=== PATIENT | male | born 1955 | race American Indian/Alaskan Native ===

== ENCOUNTER 2017-09-05 04:28 | Emergency (ER) | payer MEDICARE, OTHER ==
[2017-09-05] MEDS ORDERED: NACL 0.9% IR SCH (06:00)
[2017-09-05] MEDS ORDERED: ZOFRAN IV ONE (06:35)
[2017-09-05] MEDS ORDERED: SUBLIMAZE IV ONE (06:35)
[2017-09-05] MEDS ORDERED: DILAUDID IV ONE (06:40)
[2017-09-05] MEDS ORDERED: NACL 0.9% 500 ML IR ONE (07:52)
--- NOTE | 2017-09-05 12:04 | Emergency Department Report ---
HPI - General Chief Complaint: Urogenital-Male Time Seen by Provider: 09/05/17 06:48 - HPI HPI: The patient is a 61-year-old male who presents for evaluation of abdominal pain. The patient reports midline lower abdominal pain and distention for the past one day. The patient has a history of prostate cancer and removal years ago, and recurrent episodes of gross hematuria since. The patient reports hematuria for the past couple of days, and Caraballo catheter placement at his urologists office yesterday. He states that he has experienced severe abdominal pain, 10/10 severity, pressure-like in quality, constant since onset last night, and associated with decreased urine output per Caraballo. The patient denies fever, chills, night sweats, diarrhea, blood in the stool, dark tarry stool, flank pain, genital discharge, inability to pass flatus. ED Past Medical Hx - Past Medical History Previous Medical History?: Yes Hx of Cancer: Yes (Prostate 2003) - Surgical History Past Surgical History?: Yes Additional Surgical History: prostate removal, R foot sx x4-hardware placed - Social History Smoking Status: Never Smoker Substance Use Type: None - Medications Home Medications: Home Medications Medication Instructions Recorded Confirmed Last Taken Type Sulfamethoxazole/Trimethoprim 1 each PO BID #20 tablet 08/11/17 Unknown Rx [Bactrim DS TAB] HYDROcodone/APAP 7.5-325 [[place] 1 each PO Q8HR PRN #10 tablet 09/05/17 Unknown Rx 7.5-325 mg TAB] Ondansetron [Zofran TAB] 4 mg PO Q8HR PRN #15 tablet 09/05/17 Unknown Rx ED Review of Systems ROS: Stated complaint: BLEEDING FROM GROIN AREA Other details as noted in HPI Constitutional: denies: fever ENT: denies: throat or neck pain Respiratory: denies: cough, shortness of breath Cardiovascular: denies: chest pain Endocrine: denies unexplained weight loss or gain Gastrointestinal: reports abdominal pain, nausea Genitourinary: denies: dysuria Musculoskeletal: denies: leg swelling Skin: denies: rash Neurological: denies: headache Hematological/Lymphatic: denies: easy bleeding or easy bruising Psych: denies sadness or hopelessness Physical Exam - Physical Exam Vital Signs: Vital Signs 09/05/17 09/05/17 09/05/17 04:49 06:02 06:05 Temperature 97.3 F L Pulse Rate 78 88 95 H Respiratory 18 21 Rate Blood Pressure 127/87 148/99 Blood Pressure [Left] O2 Sat by Pulse 98 100 Oximetry 09/05/17 09/05/17 09/05/17 06:11 06:15 06:20 Temperature Pulse Rate 88 74 Respiratory 25 H 18 13 Rate Blood Pressure 148/99 144/96 148/99 Blood Pressure [Left] O2 Sat by Pulse 99 99 99 Oximetry 09/05/17 09/05/17 09/05/17 06:25 06:30 06:35 Temperature Pulse Rate 74 78 94 H Respiratory 12 14 18 Rate Blood Pressure 144/96 146/96 146/96 Blood Pressure [Left] O2 Sat by Pulse 99 97 100 Oximetry 09/05/17 09/05/17 09/05/17 06:41 06:45 06:51 Temperature Pulse Rate 81 82 76 Respiratory 14 22 21 Rate Blood Pressure 144/96 148/96 148/96 Blood Pressure [Left] O2 Sat by Pulse 98 92 99 Oximetry 09/05/17 09/05/17 09/05/17 06:54 06:55 08:30 Temperature 98.7 F Pulse Rate 77 80 Respiratory 16 16 19 Rate Blood Pressure 127/83 Blood Pressure 148/99 [Left] O2 Sat by Pulse 100 100 100 Oximetry 09/05/17 09/05/17 09/05/17 08:45 09:01 09:15 Temperature Pulse Rate 80 83 80 Respiratory 21 19 18 Rate Blood Pressure 127/82 107/71 106/65 Blood Pressure [Left] O2 Sat by Pulse 100 100 100 Oximetry 09/05/17 09/05/17 09/05/17 09:31 09:45 10:00 Temperature Pulse Rate 99 H 80 76 Respiratory 24 18 20 Rate Blood Pressure 134/86 119/82 122/85 Blood Pressure [Left] O2 Sat by Pulse 100 96 100 Oximetry 09/05/17 09/05/17 09/05/17 10:15 10:30 10:45 Temperature Pulse Rate 79 76 74 Respiratory 22 12 19 Rate Blood Pressure 113/85 114/69 125/54 Blood Pressure [Left] O2 Sat by Pulse 100 95 100 Oximetry Physical Exam: General: well-nourished, well-developed, no acute distress Head: Normocephalic, atraumatic Eyes: normal sclera ENT: Mucous membranes are pink and moist Neck: trachea midline, neck supple, No neck stiffness, no cervical adenopathy Respiratory: Breath sounds equal bilaterally, no wheezing, rales, or rhonchi Cardio: S1 and S2 present, no murmurs, rubs, gallops, capillary refill is brisk Abdomen: Normoactive bowel sounds, soft abdomen, she will be returned to palpation present, mild distention present to the lower abdomen, no rigidity, no guarding or rebound tenderness Musc: No pitting edema Skin: No rash Neuro: no facial drooping, normal speech Psych: Normal affect ED Course Vital Signs 09/05/17 09/05/17 09/05/17 04:49 06:02 06:05 Temperature 97.3 F L Pulse Rate 78 88 95 H Respiratory 18 21 Rate Blood Pressure 127/87 148/99 Blood Pressure [Left] O2 Sat by Pulse 98 100 Oximetry 09/05/17 09/05/17 09/05/17 06:11 06:15 06:20 Temperature Pulse Rate 88 74 Respiratory 25 H 18 13 Rate Blood Pressure 148/99 144/96 148/99 Blood Pressure [Left] O2 Sat by Pulse 99 99 99 Oximetry 09/05/17 09/05/17 09/05/17 06:25 06:30 06:35 Temperature Pulse Rate 74 78 94 H Respiratory 12 14 18 Rate Blood Pressure 144/96 146/96 146/96 Blood Pressure [Left] O2 Sat by Pulse 99 97 100 Oximetry 09/05/17 09/05/17 09/05/17 06:41 06:45 06:51 Temperature Pulse Rate 81 82 76 Respiratory 14 22 21 Rate Blood Pressure 144/96 148/96 148/96 Blood Pressure [Left] O2 Sat by Pulse 98 92 99 Oximetry 09/05/17 09/05/17 09/05/17 06:54 06:55 08:30 Temperature 98.7 F Pulse Rate 77 80 Respiratory 16 16 19 Rate Blood Pressure 127/83 Blood Pressure 148/99 [Left] O2 Sat by Pulse 100 100 100 Oximetry 09/05/17 09/05/17 09/05/17 08:45 09:01 09:15 Temperature Pulse Rate 80 83 80 Respiratory 21 19 18 Rate Blood Pressure 127/82 107/71 106/65 Blood Pressure [Left] O2 Sat by Pulse 100 100 100 Oximetry 09/05/17 09/05/17 09/05/17 09:31 09:45 10:00 Temperature Pulse Rate 99 H 80 76 Respiratory 24 18 20 Rate Blood Pressure 134/86 119/82 122/85 Blood Pressure [Left] O2 Sat by Pulse 100 96 100 Oximetry 09/05/17 09/05/17 09/05/17 10:15 10:30 10:45 Temperature Pulse Rate 79 76 74 Respiratory 22 12 19 Rate Blood Pressure 113/85 114/69 125/54 Blood Pressure [Left] O2 Sat by Pulse 100 95 100 Oximetry ED Medical Decision Making - Medical Decision Making The patient was seen and examined by myself. The patient is placed on a school bus monitor and continuous pulse ox. On initial evaluation, the patient was found to be in no distress. Evaluation orders were placed. The patient was given IV pain medicine. A 3-way catheter is placed and the patient's bladder is irrigated with 3 L normal saline fluid bolus. The patient's bladder appropriately drains and the patient's pain resolves. Lab results are grossly unremarkable. CT scan abdomen and pelvis is unremarkable.The patient was reevaluated and reported that their symptoms were markedly improved. The patient is stable for discharge with outpatient follow-up. The patient is given follow-up and return instructions. The patient expressed understanding and agreed with the plan. The patient is discharged in stable condition. Critical care attestation.: If time is entered above; I have spent that time in minutes in the direct care of this critically ill patient, excluding procedure time. ED Disposition Clinical Impression: Abdominal pain, acute, periumbilical, Gross hematuria Obstructed Caraballo catheter Qualifiers: Encounter type: initial encounter Qualified Code(s): T83.091A - Other mechanical complication of indwelling urethral catheter, initial encounter Disposition: - TO HOME OR SELFCARE Is pt being admited?: No Does the pt Need Aspirin: No Condition: Stable Instructions: Caraballo Catheter Placement and Care (ED), Acute Hematuria (ED), Acute Abdominal Pain (ED) Prescriptions: HYDROcodone/APAP 7.5-325 [Webb 7.5-325 mg TAB] 1 each PO Q8HR PRN #10 tablet PRN Reason: Pain Ondansetron [Zofran TAB] 4 mg PO Q8HR PRN #15 tablet PRN Reason: Nausea Referrals: PRIMARY CARE, [Primary Care Provider] - 3-5 Days SUZANNE NELSON MD [Staff Physician] - 3-5 Days Time of Disposition: 11:59
[2017-09-05 12:25] VITALS: BP 105/71
== END 2017-09-05 12:30 | disposition home or self-care (01) ==
LOC: ED 04:28
DX: T83.091A Other mechanical complication of indwelling urethral catheter, initial encounter (principal); R31.0 Gross hematuria; R10.9 Unspecified abdominal pain
CPT/HCPCS: 51701; 96374; 96375; 99283; A4217; J1170; J2405; J3010

== ENCOUNTER 2017-09-09 13:02 | Inpatient (IN) | payer MEDICARE, OTHER ==
[2017-09-09] MEDS ORDERED: MILK OF MAGNESIA PO PRN (14:10)
[2017-09-09] MEDS ORDERED: DULCOLAX PR PRN (14:10)
[2017-09-09] MEDS ORDERED: TYLENOL PO PRN (14:10)
[2017-09-09] MEDS ORDERED: ZOFRAN IV PRN (14:10)
[2017-09-09] MEDS ORDERED: PROVENTIL IH PRN (14:10)
--- NOTE | 2017-09-09 14:10 | History and Physical Report ---
History of Present Illness Date of admission: 09/09/17 13:56 Chief complaint: I need surgery History of present illness: 61 YO Male with CaP, admitted directly to hospitalist service at the request of Dr. Barajas. Pt was seen and evaluated by his Urologist for Hematuria, Bladder Mass suspicious for malignancy, and Urinary retention. Pt seen and evaluated upon arrival. Pt denies fever, chills, CP, Palpitations, NVD, recent ill contacts. Pt to be taken to OR in AM as per urology service. Pt treated with empiric antibiotic therapy, and routine labs, ordered as per urology request. Past History Past Medical History: cancer Past Surgical History: Other (Prostate surgery, Right foot surgery) Social history: Family history: hypertension Medications and Allergies Allergies Allergy/AdvReac Type Severity Reaction Status Date / Time No Known Allergies Allergy Unverified 08/06/17 11:58 Home Medications Medication Instructions Recorded Confirmed Last Taken Type Sulfamethoxazole/Trimethoprim 1 each PO BID #20 tablet 08/11/17 09/09/17 Unknown Rx [Bactrim DS TAB] HYDROcodone/APAP 7.5-325 [[place] 1 each PO Q8HR PRN #10 tablet 09/05/17 09/09/17 Unknown Rx 7.5-325 mg TAB] Ondansetron [Zofran TAB] 4 mg PO Q8HR PRN #15 tablet 09/05/17 09/09/17 Unknown Rx Review of Systems Constitutional: no weight loss, no weight gain, no fever, no chills Ears, nose, mouth and throat: no ear pain, no ear discharge, no tinnitis, no decreased hearing, no nose pain, no nasal congestion, no nasal discharge Cardiovascular: no chest pain, no orthopnea, no palpitations, no rapid/ irregular heart beat, no edema, no syncope, no lightheadedness Respiratory: no cough, no cough with sputum, no excessive sputum, no hemoptysis Gastrointestinal: no abdominal pain, no nausea, no vomiting, no diarrhea, no constipation Genitourinary Male: dysuria, hematuria, urinary retention, no flank pain, no discharge, no urinary frequency, no urinary hesitancy Rectal: no pain, no incontinence, no bleeding Musculoskeletal: no neck stiffness, no neck pain, no shooting arm pain, no arm numbness/tingling, no low back pain, no shooting leg pain Integumentary: no rash, no pruritis, no redness, no sores, no wounds, no jaundice Neurological: no head injury, no transient paralysis, no paralysis, no weakness , no parathesias, no numbness, no tingling Psychiatric: no anxiety, no memory loss, no change in sleep habits, no sleep disturbances, no hypersomnia Endocrine: no cold intolerance, no heat intolerance, no polyphagia, no excessive thirst, no polydipsia, no polyuria, no nocturia Hematologic/Lymphatic: no easy bruising, no easy bleeding Allergic/Immunologic: no urticaria, no allergic rhinitis, no wheezing Exam - Constitutional General appearance: Present: no acute distress, well-nourished - EENT Eyes: Present: PERRL ENT: hearing intact, clear oral mucosa - Neck Neck: Present: supple, normal ROM - Respiratory Respiratory effort: normal Respiratory: bilateral: CTA - Cardiovascular Heart Sounds: Present: S1 & S2. Absent: rub, click - Extremities Extremities: pulses symmetrical, No edema Peripheral Pulses: within normal limits - Abdominal General gastrointestinal: Present: soft, non-tender, non-distended, normal bowel sounds Male genitourinary: Present: normal - Integumentary Integumentary: Present: clear, warm, dry - Musculoskeletal Musculoskeletal: gait normal, strength equal bilaterally - Psychiatric Psychiatric: appropriate mood/affect, intact judgment & insight - Neurologic Neurologic: CNII-XII intact, moves all extremities Results - Labs CBC & Chem 7: 09/09/17 16:33 09/09/17 16:33 Assessment and Plan - Patient Problems (1) Abdominal pain, acute, periumbilical Current Visit: No Status: Acute Plan to address problem: Pain control, suspect secondary to bladder mass. Urology consulted, No further imaging at this time, Pt pending surgical intervention in AM. (2) Urinary retention Current Visit: Yes Status: Acute Plan to address problem: Caraballo catheter placement, CBI, (3) Bladder mass Current Visit: Yes Status: Acute Plan to address problem: Urology consulted, Pt to go to OR in am for surgical evaluation/treatment (4) DVT prophylaxis Current Visit: Yes Status: Acute
[2017-09-09 16:56] LABS: Basophils % (Auto) 0.4 % (0.0-1.8); Eosinophils % (Auto) 0.8 % (0.0-4.3); Hematocrit 29.7 % (35.5-45.6); Mean Corpuscular HGB Conc 34 % (32-34); Mean Corpuscular Hemoglobin 31 pg (28-32); Mean Corpuscular Volume 91 fl (84-94); Platelet Count 148 K/mm3 (140-440); Red Blood Count 3.28 M/mm3 (3.65-5.03); Red Cell Distribution Width 14.6 % (13.2-15.2); White Blood Count 7.1 K/mm3 (4.5-11.0)
[2017-09-09 17:06] LABS: INR 1.05 (0.87-1.13)
[2017-09-09 17:20] LABS: Alanine Aminotransferase 27 units/L (7-56); Albumin 4.3 g/dL (3.9-5); Albumin/Globulin Ratio 1.4 %; Alkaline Phosphatase 47 units/L (35-129); Anion Gap 22 mmol/L; BUN/Creatinine Ratio 12; Blood Urea Nitrogen 11 mg/dL (9-20); Calcium 8.8 mg/dL (8.4-10.2); Carbon Dioxide 24 mmol/L (22-30); Chloride 101.7 mmol/L (98-107); Glucose 112 mg/dL (75-100); Potassium 3.9 mmol/L (3.6-5.0); Sodium 144 mmol/L (137-145); Total Protein 7.3 g/dL (6.3-8.2)
[2017-09-09] MEDS: NACL 0.45% 1000 ML 1,000 ML IV SCH (18:24)
[2017-09-09] MEDS: cefTRIAXone 1 GM in NACL 0.9% 20 ML IV SCH (18:25)
[2017-09-09] MEDS ORDERED: NACL 0.9% 1,000 ML IR ONE (20:06)
[2017-09-09] MEDS ORDERED: NACL 0.9% IR STA (20:22)
[2017-09-09] MEDS ORDERED: NACL 0.9% IR PRN (20:29)
[2017-09-09] MEDS: PEPCID IV SCH (22:48)
[2017-09-09] MEDS: AMBIEN PO PRN (22:48)
[2017-09-09] MEDS: NACL 0.9% IR SCH (23:08)
[2017-09-10] MEDS: NACL 0.9% IR SCH ×4 (01:35→22:40)
[2017-09-10] MEDS ORDERED: DIPRIVAN 10 MG/ML IV ONE (07:13)
[2017-09-10] MEDS ORDERED: DILAUDID ONE ×4 (07:14→11:19)
[2017-09-10] MEDS ORDERED: XYLOCAINE MPF 2% ONE (07:14)
[2017-09-10] MEDS ORDERED: ZOFRAN ONE (07:15)
[2017-09-10] MEDS ORDERED: DECADRON ONE (07:15)
[2017-09-10] MEDS ORDERED: NACL 0.9% 1000 ML 1,000 ML ONE ×3 (07:39→11:24)
[2017-09-10] MEDS ORDERED: ANCEF ONE ×2 (07:58)
[2017-09-10] MEDS ORDERED: LASIX ONE (08:20)
[2017-09-10] MEDS ORDERED: WATER FOR IRRIG STERILE IR ONE ×3 (08:30)
[2017-09-10] MEDS ORDERED: XYLOCAINE 2% UROJET ONE (08:37)
[2017-09-10] MEDS ORDERED: XYLOCAINE 2% UROJET UR ONE (08:58)
[2017-09-10] MEDS: DILAUDID IV PRN ×4 (09:27→10:20)
--- NOTE | 2017-09-10 09:27 | Anesthesia Day of Surgery ---
Anesthesia Day of Surgery - Day of Surgery Patient Examined: Yes Patient H&P Reviewed: Yes Patient is NPO: Yes
--- NOTE | 2017-09-10 09:27 | Post Anesthesia Evaluation ---
- Post Anesthesia Evaluation Patient Participated: Yes Airway Patent: Yes Stable Respiratory Function: Yes Nausea/Vomiting: No Temp > 96.8F: Yes Pain Manageable: Yes Adequeate Hydration: Yes Anesthesia Complications: No Block Receding Appropriately: Not Applicable Patient on Ventilator: No
--- NOTE | 2017-09-10 09:27 | Anesthesia Consultation ---
Anesthesia Consult and Med Hx Date of service: 09/10/17 - Airway Anesthetic Teeth Evaluation: Good ROM Head & Neck: Adequate Mental/Hyoid Distance: Adequate Mallampati Class: Class II Intubation Access Assessment: Probably Good - Pulmonary Exam CTA: Yes - Cardiac Exam Cardiac Exam: RRR - Pre-Operative Health Status ASA Pre-Surgery Classification: ASA2 Proposed Anesthetic Plan: General - Pulmonary Hx Asthma: No - Cardiovascular System Hx Hypertension: No - Central Nervous System Hx Seizures: No CVA: No Hx Psychiatric Problems: No - Endocrine Hx Liver Disease: No - Other Systems Hx Alcohol Use: No Hx Substance Use: No Hx Cancer: Yes (prostate) Hx Obesity: Yes
--- NOTE | 2017-09-10 12:28 | Ultrasound Report ---
FINAL REPORT EXAM: US PELVIC LIMITED HISTORY: CHECK GARCIA PLACEMENT; IRRIGATION NOT DRAINING TECHNIQUE: Ultrasound evaluation of the urinary bladder, patient in recovery from cystogram PRIORS: None. FINDINGS: Urinary bladder cannot be assessed since there is no evidence of fluid. It is likely empty. No pelvic free fluid. Garcia catheter or balloon not definitively manifest sonographically. IMPRESSION: Likely empty urinary bladder since fluid is not visualized. Garcia catheter or balloon not definitively manifest with ultrasound
--- NOTE | 2017-09-10 12:31 | Fluoroscopy Report ---
FLUOROSCOPY RETROGRADE UROGRAPHY FLUOROSCOPY CYSTOGRAM, ONE VIEW History: Gross hematuria. Findings: Fluoroscopy was provided by radiology during retrograde urography and cystogram by urology. 10 fluoroscopic images were captured. Please correlate with the procedural report by Dr. Barajas.
[2017-09-10] MEDS: MORPHINE IV PRN ×2 (13:28→17:53)
--- NOTE | 2017-09-10 13:31 | Progress Note ---
Assessment and Plan Assessment and plan: Hematuria, Urinary retention. He was taken to OR and had cystoscopy, RPG and bladder biopsy done by Dr Barajas. Management as per Urologist Was on page drip as per urologist. History of Prostate cancer. had bladder biopsy done today DVT prophylaxis with SCDs only because of gross hematuria. History Interval history: Patient presented with hematuria, urinary retention, had surgical procedure today Mild pain lower abdomen Hospitalist Physical - Constitutional Vitals: Temp Pulse Resp BP Pulse Ox 97.9 F 85 18 125/90 94 09/10/17 11:38 09/10/17 11:38 09/10/17 11:38 09/10/17 11:38 09/10/17 11:38 General appearance: Present: no acute distress, obese - EENT Eyes: Present: PERRL ENT: clear oral mucosa - Neck Neck: Present: supple - Respiratory Respiratory effort: normal Respiratory: bilateral: CTA, negative: diminished, rales, rhonchi, wheezing - Cardiovascular Rhythm: regular Heart Sounds: Present: S1 & S2 (S1 and S2 reg, no murmurs) - Extremities Extremities: no ischemia, No edema - Abdominal General gastrointestinal: soft, non-tender, non-distended, normal bowel sounds - Integumentary Integumentary: Present: clear, warm, dry - Psychiatric Psychiatric: appropriate mood/affect, intact judgment & insight - Neurologic Neurologic: moves all extremities, other (AAO x 3) Results - Labs CBC & Chem 7: 09/12/17 04:56 09/12/17 04:56 Labs: Laboratory Last Values WBC 7.1 K/mm3 (4.5-11.0) 09/09/17 16:33 RBC 3.28 M/mm3 (3.65-5.03) L 09/09/17 16:33 Hgb 10.0 gm/dl (11.8-15.2) L 09/09/17 16:33 Hct 29.7 % (35.5-45.6) L 09/09/17 16:33 MCV 91 fl (84-94) 09/09/17 16:33 MCH 31 pg (28-32) 09/09/17 16:33 MCHC 34 % (32-34) 09/09/17 16:33 RDW 14.6 % (13.2-15.2) 09/09/17 16:33 Plt Count 148 K/mm3 (140-440) 09/09/17 16:33 Lymph % (Auto) 14.1 % (13.4-35.0) 09/09/17 16:33 [place] % (Auto) 5.8 % (0.0-7.3) 09/09/17 16:33 Eos % (Auto) 0.8 % (0.0-4.3) 09/09/17 16:33 Baso % (Auto) 0.4 % (0.0-1.8) 09/09/17 16:33 Lymph # 1.0 K/mm3 (1.2-5.4) L 09/09/17 16:33 [place] # 0.4 K/mm3 (0.0-0.8) 09/09/17 16:33 Eos # 0.1 K/mm3 (0.0-0.4) 09/09/17 16:33 Baso # 0.0 K/mm3 (0.0-0.1) 09/09/17 16:33 Seg Neutrophils % 78.9 % (40.0-70.0) H 09/09/17 16:33 Seg Neutrophils # 5.6 K/mm3 (1.8-7.7) 09/09/17 16:33 PT 14.2 Sec. (12.2-14.9) 09/09/17 16:33 INR 1.05 (0.87-1.13) 09/09/17 16:33 Sodium 144 mmol/L (137-145) 09/09/17 16:33 Potassium 3.9 mmol/L (3.6-5.0) 09/09/17 16:33 Chloride 101.7 mmol/L (98-107) 09/09/17 16:33 Carbon Dioxide 24 mmol/L (22-30) 09/09/17 16:33 Anion Gap 22 mmol/L 09/09/17 16:33 BUN 11 mg/dL (9-20) 09/09/17 16:33 Creatinine 0.9 mg/dL (0.8-1.5) 09/09/17 16:33 Estimated GFR > 60 ml/min 09/09/17 16:33 BUN/Creatinine Ratio 12 % 09/09/17 16:33 Glucose 112 mg/dL (75-100) H 09/09/17 16:33 Calcium 8.8 mg/dL (8.4-10.2) 09/09/17 16:33 Total Bilirubin 0.40 mg/dL (0.1-1.2) 09/09/17 16:33 AST 18 units/L (5-40) 09/09/17 16:33 ALT 27 units/L (7-56) 09/09/17 16:33 Alkaline Phosphatase 47 units/L (35-129) 09/09/17 16:33 Total Protein 7.3 g/dL (6.3-8.2) 09/09/17 16:33 Albumin 4.3 g/dL (3.9-5) 09/09/17 16:33 Albumin/Globulin Ratio 1.4 % 09/09/17 16:33
[2017-09-10] MEDS ORDERED: DITROPAN XL PO ONE (17:00)
[2017-09-10] MEDS: cefTRIAXone 1 GM in NACL 0.9% 20 ML IV SCH (18:02)
[2017-09-10] MEDS: AMBIEN PO PRN (22:40)
[2017-09-10] MEDS: PEPCID IV SCH (22:40)
[2017-09-11] MEDS: MORPHINE IV PRN ×4 (05:20→21:31)
[2017-09-11] MEDS: NACL 0.9% IR SCH ×3 (08:42→21:00)
[2017-09-11] MEDS: PEPCID IV SCH ×2 (09:48→21:32)
--- NOTE | 2017-09-11 11:29 | Post Operative Note ---
Pre-op diagnosis: Gross hematuria, prostate ca Post-op diagnosis: same Findings: some susp areass near bn, raised, ?cic/early pap bleeding around BN and prox is just show it is not Procedure: CYSTO rpg, bladder bx fulg lesions; Anesthesia: YUDITHA Surgeon: ANTHONY LOPEZ Estimated blood loss: minimal Pathology: list (BN rt, left; 6; urethra tissuebx) Specimen disposition: to lab Condition: stable Disposition: PACU
--- NOTE | 2017-09-11 12:02 | Event Note ---
Date: 09/11/17 sig dec abd pain urine clearing page drip held if clear will remove seo today and if voids can go home labs pending cbc/bmp
--- NOTE | 2017-09-11 12:03 | Event Note ---
Date: 09/10/17 Post op no sig abd pain catheter urine clear significantly improved patient does have his seq compression deviceon it and working, placed preoperatively discussed plan will patie
[2017-09-11 12:24] LABS: Basophils % (Auto) 0.4 % (0.0-1.8); Eosinophils % (Auto) 1.2 % (0.0-4.3); Hemoglobin 9.2 gm/dl (11.8-15.2); Mean Corpuscular HGB Conc 34 % (32-34); Mean Corpuscular Hemoglobin 31 pg (28-32); Mean Corpuscular Volume 91 fl (84-94); Platelet Count 144 K/mm3 (140-440); Red Blood Count 2.97 M/mm3 (3.65-5.03); Red Cell Distribution Width 14.2 % (13.2-15.2); White Blood Count 5.5 K/mm3 (4.5-11.0)
[2017-09-11 12:36] LABS: Anion Gap 17 mmol/L; BUN/Creatinine Ratio 14; Blood Urea Nitrogen 13 mg/dL (9-20); Calcium 8.3 mg/dL (8.4-10.2); Carbon Dioxide 25 mmol/L (22-30); Chloride 103.5 mmol/L (98-107); Glucose 115 mg/dL (75-100); Potassium 3.4 mmol/L (3.6-5.0); Sodium 142 mmol/L (137-145)
[2017-09-11] MEDS: FLOMAX PO SCH (12:42)
--- NOTE | 2017-09-11 16:18 | Progress Note ---
Assessment and Plan /Hematuria, Urinary retention. He was taken to OR and had cystoscopy done Management as per Urologist Was on page drip as per urologist. page drip held today if urine clear plan to remove seo today and if voids can go home momitor H/H /History of Prostate cancer. - need outpt f/u DVT prophylaxis with SCDs only. Brief history: 61 YO Male with CaP, admitted directly to hospitalist service at the request of Dr. Barajas. Pt was seen and evaluated by his Urologist for Hematuria, Bladder Mass suspicious for malignancy, and Urinary retention Hospitalist Physical General appearance: Present: no acute distress, obese - EENT Eyes: Present: PERRL ENT: clear oral mucosa - Neck Neck: Present: supple - Respiratory Respiratory effort: normal Respiratory: bilateral: CTA, negative: diminished, rales, rhonchi, wheezing - Cardiovascular Rhythm: regular Heart Sounds: Present: S1 & S2 (S1 and S2 reg, no murmurs) - Extremities Extremities: no ischemia, No edema - Abdominal General gastrointestinal: soft, non-tender, non-distended, normal bowel sounds - Integumentary Integumentary: Present: clear, warm, dry - Psychiatric Psychiatric: appropriate mood/affect, intact judgment & insight - Neurologic Neurologic: moves all extremities, other (AAO x 3) Subjective Date of service: 09/11/17 Interval history: Patient seen and examined. Medical records and medication list reviewed. No acute event overnight noted by the RN. Patient denies any chest pain or difficulty breathing. Patient is tolerating diet. Discussed plan of care at bedside with patient. Objective - Constitutional Vitals: Vital Signs - 12hr 09/11/17 09/11/17 09/11/17 07:32 07:57 10:00 Temperature 98.7 F Pulse Rate 86 77 Respiratory 20 18 Rate Blood Pressure 115/74 Blood Pressure 115/74 [Right] O2 Sat by Pulse 95 99 Oximetry - Labs CBC & Chem 7: 09/12/17 04:56 09/12/17 04:56 Labs: Abnormal lab results 09/11/17 09/11/17 Range/Units 11:33 11:33 RBC 2.97 L (3.65-5.03) M/mm3 Hgb 9.2 L (11.8-15.2) gm/dl Hct 27.0 L (35.5-45.6) % Lymph # 1.0 L (1.2-5.4) K/mm3 Seg Neutrophils % 74.1 H (40.0-70.0) % Potassium 3.4 L (3.6-5.0) mmol/L Glucose 115 H (75-100) mg/dL Calcium 8.3 L (8.4-10.2) mg/dL
[2017-09-11] MEDS ORDERED: K-DUR PO ONE (16:20)
[2017-09-11 16:33] LABS: INR 1.09 (0.87-1.13)
[2017-09-11 16:34] LABS: Partial Thromboplastin Time 32.5 Sec. (24.2-36.6)
[2017-09-11] MEDS: cefTRIAXone 1 GM in NACL 0.9% 20 ML IV SCH (16:47)
[2017-09-11] MEDS: NACL 0.45% 1000 ML 1,000 ML IV SCH (22:49)
[2017-09-11] MEDS: ALUM IR SCH (23:03)
[2017-09-11] MEDS: NS IRRIGATION IR SCH (23:03)
[2017-09-11] MEDS: AMBIEN PO PRN (23:03)
[2017-09-12] MEDS: NACL 0.9% IR SCH (02:30)
[2017-09-12] MEDS: PEPCID IV SCH (03:06)
[2017-09-12 06:44] LABS: Basophils % (Auto) 0.5 % (0.0-1.8); Eosinophils % (Auto) 2.1 % (0.0-4.3); Hematocrit 25.5 % (35.5-45.6); Hemoglobin 8.7 gm/dl (11.8-15.2); Mean Corpuscular HGB Conc 34 % (32-34); Mean Corpuscular Hemoglobin 30 pg (28-32); Mean Corpuscular Volume 90 fl (84-94); Platelet Count 150 K/mm3 (140-440); Red Blood Count 2.85 M/mm3 (3.65-5.03); Red Cell Distribution Width 14.5 % (13.2-15.2)
[2017-09-12 06:55] LABS: Anion Gap 18 mmol/L; BUN/Creatinine Ratio 14; Blood Urea Nitrogen 13 mg/dL (9-20); Calcium 8.1 mg/dL (8.4-10.2); Carbon Dioxide 24 mmol/L (22-30); Chloride 102.1 mmol/L (98-107); Glucose 113 mg/dL (75-100); Potassium 3.9 mmol/L (3.6-5.0); Sodium 140 mmol/L (137-145)
[2017-09-12] MEDS: MORPHINE IV PRN ×2 (07:08→11:52)
[2017-09-12] MEDS: FLOMAX PO SCH (08:09)
[2017-09-12] MEDS ORDERED: PEPCID PO SCH (10:00)
[2017-09-12] MEDS: NS IRRIGATION IR SCH (10:30)
[2017-09-12] MEDS: ALUM IR SCH (10:30)
--- NOTE | 2017-09-12 13:59 | Discharge Summary ---
Providers - Providers Date of Admission: 09/09/17 13:56 Date of discharge: 09/12/17 Attending physician: PROSPER ACOSTA 09/09/17 14:10 Consult to Physician [CONS] Routine Consulting Provider: ANTHONY BARAJAS Reason For Exam: hematuria Place consult to:: yes Notified:: yes Primary care physician: COMMUNICATIONS PROGRAMMER Hospitalization Hospital course: Brief history: 61 YO Male with CaP, admitted directly to hospitalist service at the request of Dr. Barajas. Pt was seen and evaluated by his Urologist for Hematuria, Bladder Mass suspicious for malignancy, and Urinary retention. Discharge diagnosis and management: /Hematuria, Urinary retention. His H/H monitored He was taken to OR and had cystoscopy by urologist She was placed on page drip as per urologist. page drip then kept held and urine output monitored off seo he was able to void without seo he was cleared by urologist can go home, he will f/u /History of Prostate cancer. - need outpt f/u /acute blood loss anemia -due to hematurea, H and H remained stable DVT prophylaxis with SCDs only. Disposition: DC-01 TO HOME OR SELFCARE Time spent for discharge: 32 minutes Core Measure Documentation - Palliative Care Palliative Care/ Comfort Measures: Not Applicable - Core Measures Any of the following diagnoses?: none Exam - Physical Exam Narrative exam: General appearance: Present: no acute distress, obese - EENT Eyes: Present: PERRL ENT: clear oral mucosa - Neck Neck: Present: supple - Respiratory Respiratory effort: normal Respiratory: bilateral: CTA, negative: diminished, rales, rhonchi, wheezing - Cardiovascular Rhythm: regular Heart Sounds: Present: S1 & S2 (S1 and S2 reg, no murmurs) - Extremities Extremities: no ischemia, No edema - Abdominal General gastrointestinal: soft, non-tender, non-distended, normal bowel sounds - Integumentary Integumentary: Present: clear, warm, dry - Psychiatric Psychiatric: appropriate mood/affect, intact judgment & insight - Neurologic Neurologic: moves all extremities, other (AAO x 3) - Constitutional Vitals: Temp Pulse Resp BP Pulse Ox 99.4 F 88 20 129/83 97 09/12/17 11:38 09/12/17 11:39 09/12/17 11:38 09/12/17 11:38 09/12/17 11:39 Plan Activity: advance as tolerated Weight Bearing Status: Weight Bear as Tolerated Diet: low fat, low salt Follow up with: PRIMARY CARE,MD [Primary Care Provider] - 7 Days Prescriptions: Sulfamethoxazole/Trimethoprim [Bactrim DS TAB] 1 each PO BID #6 tablet
[2017-09-12] MEDS ORDERED: NACL 0.9% 500 ML 500 ML ONE (14:14)
[2017-09-12 15:48] VITALS: BP 105/69
== END 2017-09-12 17:30 | disposition home or self-care (01) | DRG 696 ==
LOC: 3A 13:02 → UNDOADMIN 13:02 → 3B-SURG 13:56
PROVIDERS: ADMIT Internal Medicine; ATTEND Internal Medicine
PROC: BT141ZZ Fluoroscopy of Kidneys, Ureters and Bladder using Low Osmolar Contrast (ICD-10-PCS; principal; 2017-09-10)
PROC: 0TCB8ZZ Extirpation of Matter from Bladder, Via Natural or Artificial Opening Endoscopic (ICD-10-PCS; 2017-09-10)
PROC: 0TBD8ZX Excision of Urethra, Via Natural or Artificial Opening Endoscopic, Diagnostic (ICD-10-PCS; 2017-09-10)
PROC: 0TBD8ZX Excision of Urethra, Via Natural or Artificial Opening Endoscopic, Diagnostic (ICD-10-PCS; 2017-09-10)
DX: R31.0 Gross hematuria (principal); D62 Acute posthemorrhagic anemia; R33.8 Other retention of urine; Z82.49 Family history of ischemic heart disease and other diseases of the circulatory system; Z85.46 Personal history of malignant neoplasm of prostate
CPT/HCPCS: 36415; 74420; 74430; 76857; 80048; 80053; 85025; 85027; 85610; 85730; 87040; 88305; 88341; 88342; A4217; C1758; J0690; J0696; J1100; J1170; J1940; J2270; J2405; J2704; J7030; J7040; Q9967